=== PATIENT | female | born 1970 | race Hispanic/Latino ===

== ENCOUNTER 2022-12-20 13:29 | Outpatient (CLI) | payer BC | END 2022-12-20 13:30 | disposition home or self-care (01) | LOC: CSHLAB 13:29 | PROVIDERS: ATTEND Obstetrics & Gynecology | DX: Z01.818 Encounter for other preprocedural examination (principal); N83.201 Unspecified ovarian cyst, right side; N92.0 Excessive and frequent menstruation with regular cycle | CPT/HCPCS: 80048; 84703; 85027; 86850; 86900; 86901; 93005; 93010 ==

== ENCOUNTER 2022-12-21 05:46 | Day surgery (SDC) | payer BC ==
[2022-12-20 14:41] VITALS: BMI 31.8
[2022-12-20 15:19] LABS: BHCG - Serum Negative (NEGATIVE); Pregs Control Background? CLEAR/WHITE (CLR/WHITE); Pregs Control Bar Appear? YES (CONTROL BAR)
[2022-12-20 15:30] LABS: Red Blood Cell (RBC) Count 4.64 10x6/uL (3.90-5.03); White Blood Cell (WBC) Count 6.2 10x3/uL (3.5-10.5)
[2022-12-20 15:31] LABS: Hematocrit 39.1 % (34.9-44.5); Hemoglobin 12.8 g/dL (12.0-15.5); Mean Corpuscular HGB CONC 32.7 g/dL (32.0-36.0); Mean Corpuscular Hemoglobin 27.6 pg (27.0-33.0); Mean Corpuscular Volume 84.3 fl (81.6-98.3); Mean Platelet Volume 10.4 fl (7.4-10.4); Platelet Count 232 10x3/uL (130-400); RBC Distribution Width 13.4 % (11.5-14.5)
[2022-12-20 17:33] LABS: Anion Gap 15 mmol/L (10-20); BUN (Urea Nitrogen) 16 mg/dL (9.8-20.1); Calc. Creatinine Clearance 0 mL/min (70-130); Calcium 9.2 mg/dL (7.8-10.44); Carbon Dioxide 20 mmol/L (22-29); Chloride 107 mmol/L (98-107); Estimated GFR 105; Glucose 121 mg/dL (70-105); Potassium 4.2 mmol/L (3.5-5.1); Sodium 138 mmol/L (136-145)
[2022-12-21] MEDS ORDERED: EPINEPHrine 1 MG/ML AMP ONE (06:28)
[2022-12-21] MEDS ORDERED: Bupivacaine PF 0.5% 30 ML VIAL ONE (06:28)
[2022-12-21] MEDS ORDERED: Famotidine/PF 20 mg/2ml Vial ONE (06:30)
[2022-12-21] MEDS ORDERED: CeleCOXIB 100 MG CAP ONE (06:30)
[2022-12-21] MEDS ORDERED: Gabapentin 300 MG CAP ONE (06:30)
[2022-12-21] MEDS ORDERED: Methylene Blue 50 MG/10 ML AMPUL ONE (06:32)
[2022-12-21] MEDS ORDERED: CEFAZOLIN 2 GM VIAL ONE (07:05)
== END 2022-12-21 11:20 | disposition home or self-care (01) ==
LOC: CSHSDC 05:46
PROVIDERS: ATTEND Obstetrics & Gynecology
PROC: 0U5B8ZZ Destruction of Endometrium, Via Natural or Artificial Opening Endoscopic (ICD-10-PCS; principal; 2022-12-21)
PROC: 0UB24ZZ Excision of Bilateral Ovaries, Percutaneous Endoscopic Approach (ICD-10-PCS; principal; 2022-12-21)
PROC: 0UB74ZZ Excision of Bilateral Fallopian Tubes, Percutaneous Endoscopic Approach (ICD-10-PCS; principal; 2022-12-21)
DX: D27.0 Benign neoplasm of right ovary (principal); N92.0 Excessive and frequent menstruation with regular cycle; E11.9 Type 2 diabetes mellitus without complications; Z79.84 Long term (current) use of oral hypoglycemic drugs
CPT/HCPCS: 80048; 84703; 85027; 86850; 86900; 86901; 88305; 88307; J0171; Q9968; S0020; S0028